=== PATIENT | female | born 1960 | race American Indian/Alaskan Native ===

== ENCOUNTER 2021-07-30 13:20 | Emergency (ER) | payer MEDICAID ==
[~2021-07-30] VITALS: Ht 152.4 cm; Wt 80.0 kg
[2021-07-30] MEDS ORDERED: AMLODIPINE 5MG TABLET PO ONE (15:15)
[2021-07-30] MEDS ORDERED: ASPIRIN 81MG TABLET PO ONE (15:15)
[2021-07-30 16:21] LABS: HEMATOCRIT. 49.8 % (36.0-48.0); HEMOGLOBIN. 16.5 g/dL (12.0-16.0); MEAN CORPUSCULAR HEMOGLOBIN 29.9 pg (28.0-32.0); MEAN CORPUSCULAR VOLUME 90.6 fL (81.0-99.0); MEAN PLATELET VOLUME 9.3 fl (7.4-10.4); PLATELET 263 x1000/uL (130-400); RED CELL DISTRIBUTION WIDTH 14.7 % (11.6-14.6)
[2021-07-30 16:22] LABS: CHLORIDE 108 mEq/L (98-107)
[2021-07-30] MEDS ORDERED: LABETALOL 5MG/ML SYR 20 MG/4 ML SYRINGE IV PRN (16:30)
[2021-07-30] MEDS ORDERED: NICARDIPINE 40MG/200ML PREMIX 200 ML IV ONE (16:30)
[2021-07-30] MEDS ORDERED: LEVETIRACETAM 1,000 MG in SODIUM CHLORIDE 0.9% 100 ML IV STA (16:37)
[2021-07-30 16:45] LABS: PLATELET ESTIMATE NORMAL
[2021-07-30] MEDS ORDERED: LEVETIRACETAM 1000MG PREMIX 100 ML IV NR (16:45)
[2021-07-30 17:27] LABS: PROTHROMBIN TIME 10.9 sec (9.6-11.0)
[2021-07-30] MEDS ORDERED: DESMOPRESSIN ACETATE IVPB 24 MCG in SODIUM CHLORIDE 0.9% 50 ML IV NR (21:45)
[2021-07-30 22:09] LABS: CLARITY URINE CLEAR (CLEAR); COLOR URINE YELLOW (YELLOW); KETONES URINE TRACE (NEGATIVE); LEUKOCYTE ESTERASE URINE NEGATIVE (NEGATIVE); NITRITE URINE NEGATIVE (NEGATIVE); OCCULT BLOOD URINE NEGATIVE (NEGATIVE); PROTEIN URINE NEGATIVE (NEGATIVE); SPECIFIC GRAVITY URINE 1.007 (1.005-1.030); UROBILINOGEN URINE 0.2 E.U./dL (0.2-1.0)
[2021-07-30 23:29] VITALS: BP 120/79
== END 2021-07-30 23:50 | disposition short-term general hospital (02) ==
LOC: ER 13:20 → CANBEDREQ 07-31 00:30
DX: I61.8 Other nontraumatic intracerebral hemorrhage (principal); I10 Essential (primary) hypertension; D75.1 Secondary polycythemia; Z20.822 Contact with and (suspected) exposure to COVID-19
CPT/HCPCS: 36415; 70450; 71045; 80053; 81003; 83721; 83880; 84484; 85025; 85379; 85610; 86850; 86900; 86901; 87426; 96365; 96367; 96375; 99291; J1953; J2597; Z7610; 36430; 99285; J7050; P9016; P9036